=== PATIENT | female | born 1995 ===

== ENCOUNTER 2024-10-19 08:36 | Emergency (ER) | payer SELFPAY ==
[2024-10-19] MEDS: Ketorolac 30 MG/ML SDV IM ONE (10:26)
== END 2024-10-19 10:41 | disposition home or self-care (01) ==
LOC: MW.ED 08:36
DX: J10.1 Influenza due to other identified influenza virus with other respiratory manifestations (principal); Z75.8 Other problems related to medical facilities and other health care
CPT/HCPCS: 71046; 87428; 96372; 99285; J1885